=== PATIENT | female | born 1950 | race Caucasian/White ===

== ENCOUNTER 2022-02-15 11:17 | Emergency (ER) | payer MEDICARE ==
[2022-02-15 11:31] VITALS: RESP 18; TEMP 98.2
--- NOTE | 2022-02-15 11:50 | ED ---
General Adult HPI - General Chief complaint: Dizziness Stated complaint: Dizziness Time Seen by Provider: 02/15/22 11:34 Source: patient, EMS Mode of arrival: EMS Limitations: no limitations - History of Present Illness Initial comments: Dictation was produced using [employer] dictation software. please excuse any grammatical, word or spelling errors. Chief Complaint: 71-year-old female past medical history of DVTs, dyslipidemia, pulmonary embolus on anticoagulation therapy presents emergency department for 15 to 22 second episode of dizziness History of Present Illness: Lucila is a 71-year-old female she presents today for an episode of dizziness she was sitting down at rest when all of a sudden she felt acute onset dizziness. States that her last for 15-20 seconds. States that her symptoms remind her of the symptoms she had before she was diagnosed with thromboembolism. Patient's been on Xarelto for the last urinary half. States that her symptoms resolved on its own. He is asymptomatic at bedside. She decided come to the emergency department to be evaluated. The ROS documented in this emergency department record has been reviewed and confirmed by me. Those systems with pertinent positive or negative responses have been documented in the HPI. All other systems are other negative and/or noncontributory. PHYSICAL EXAM: General Impression: Alert and oriented x3, not in acute distress HEENT: Normocephalic atraumatic, extra-ocular movements intact, pupils equal and reactive to light bilaterally, mucous membranes moist. Cardiovascular: Heart regular rate and rhythm Chest: Able to complete full sentences, no retractions, no tachypnea Abdomen: abdomen soft, non-tender, non-distended, no organomegaly Musculoskeletal: Pulses present and equal in all extremities, no peripheral edema Motor: no focal deficits noted Neurological: CN II-XII grossly intact, no focal motor or sensory deficits noted Skin: Intact with no visualized rashes Psych: Normal affect and mood ED course: 71-year-old female with multiple comorbidities presents to the emergency department for episode of dizziness. Signs upon arrival are within acceptable limits. Patient denies any symptoms at the bedside are physical examination is benign. EKG is unremarkable. No concern for recurrence of DVT or PE given that patient's been on Xarelto and has been compliant. Laboratory evaluation obtained. CBC, metabolic panel is unremarkable. Patient observed in emergency department for approximately 1 hour 30 minutes per she is required at bedside at 12:45 PM on to be in stable medical condition. 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 She denies any symptoms while she was in the emergency department. Patient advised follow-up with primary care doctor. EKG interpretation: Ventricular rate 66, sinus rhythm,. Interval and 69, QS 84, QTC 417. No MD prolongation, no QTC prolongation, no ST or T-wave changes noted. Overall, this EKG is unremarkable - Related Data Allergies Allergy/AdvReac Type Severity Reaction Status Date / Time azithromycin Allergy Itching Verified 02/15/22 11:32 Penicillins Allergy Rash/Hives Verified 02/15/22 11:32 vancomycin Allergy Itching Verified 02/15/22 11:32 Review of Systems ROS Statement: Those systems with pertinent positive or pertinent negative responses have been documented in the HPI. ROS Other: All systems not noted in ROS Statement are negative. Past Medical History Past Medical History: Deep Vein Thrombosis (DVT), Hyperlipidemia, Hypertension, Pulmonary Embolus (PE) Additional Past Medical History / Comment(s): Tachycardia, chronic back pain, spinal stenosis. History of Any Multi-Drug Resistant Organisms: None Reported Past Surgical History: Appendectomy, Back Surgery, Heart Catheterization, Hysterectomy, Tonsillectomy Past Psychological History: Anxiety Smoking Status: Former smoker Past Alcohol Use History: Occasional Past Drug Use History: None Reported, Marijuana General Exam Limitations: no limitations Course Vital Signs 02/15/22 11:24 Temperature 98.2 F Pulse Rate 70 Respiratory 18 Rate Blood Pressure 139/67 O2 Sat by Pulse 96 Oximetry Medical Decision Making - Lab Data Result diagrams: 02/15/22 12:05 02/15/22 12:05 Lab Results 02/15/22 02/15/22 Range/Units 12:05 12:05 WBC 6.6 (3.8-10.6) k/uL RBC 5.12 (3.80-5.40) m/uL Hgb 17.0 H (11.4-16.0) gm/dL Hct 50.0 H (34.0-46.0) % MCV 97.6 (80.0-100.0) fL MCH 33.2 (25.0-35.0) pg MCHC 34.1 (31.0-37.0) g/dL RDW 13.9 (11.5-15.5) % Plt Count 179 (150-450) k/uL MPV 8.0 Neutrophils % 57 % Lymphocytes % 35 % Monocytes % 3 % Eosinophils % 2 % Basophils % 1 % Neutrophils # 3.8 (1.3-7.7) k/uL Lymphocytes # 2.3 (1.0-4.8) k/uL Monocytes # 0.2 (0-1.0) k/uL Eosinophils # 0.1 (0-0.7) k/uL Basophils # 0.1 (0-0.2) k/uL Sodium 138 (137-145) mmol/L Potassium 4.3 (3.5-5.1) mmol/L Chloride 107 (98-107) mmol/L Carbon Dioxide 25 (22-30) mmol/L Anion Gap 6 mmol/L BUN 15 (7-17) mg/dL Creatinine 0.88 (0.52-1.04) mg/dL Est GFR (CKD-EPI)AfAm 78 (>60 ml/min/1.73 sqM) Est GFR (CKD-EPI)NonAf 67 (>60 ml/min/1.73 sqM) Glucose 87 (74-99) mg/dL Calcium 8.8 (8.4-10.2) mg/dL Disposition Clinical Impression: Dizziness Disposition: HOME SELF-CARE Condition: Good Instructions (If sedation given, give patient instructions): Dizziness (ED) Is patient prescribed a controlled substance at d/c from ED?: No Referrals: Nonstaff,Physician [Primary Care Provider] - 1-2 days
[2022-02-15 12:37] LABS: Basophils # (A) 0.1 k/uL (0-0.2); Basophils % (A) 1 %; Calcium 8.8 mg/dL (8.4-10.2); Eosinophils # (A) 0.1 k/uL (0-0.7); Eosinophils % (A) 2 %; Lymphocytes # (A) 2.3 k/uL (1.0-4.8); Lymphocytes % (A) 35 %; MCH 33.2 pg (25.0-35.0); MCHC 34.1 g/dL (31.0-37.0); MCV 97.6 fL (80.0-100.0); Monocytes # (A) 0.2 k/uL (0-1.0); Monocytes % (A) 3 %; Neutrophils # (A) 3.8 k/uL (1.3-7.7); Neutrophils % (A) 57 %; Platelet Count 179 k/uL (150-450); RBC 5.12 m/uL (3.80-5.40); RDW 13.9 % (11.5-15.5); WBC 6.6 k/uL (3.8-10.6)
[2022-02-15 12:40] LABS: Potassium 4.3 mmol/L (3.5-5.1)
[2022-02-15 13:08] VITALS: BP 118/62; PULSE 65
== END 2022-02-15 13:12 | disposition home or self-care (01) ==
LOC: EC 11:17
DX: R42 Dizziness and giddiness (principal); E78.5 Hyperlipidemia, unspecified; I10 Essential (primary) hypertension; F41.9 Anxiety disorder, unspecified; F12.90 Cannabis use, unspecified, uncomplicated; Z88.0 Allergy status to penicillin; Z88.1 Allergy status to other antibiotic agents; Z86.718 Personal history of other venous thrombosis and embolism; Z86.711 Personal history of pulmonary embolism; Z90.49 Acquired absence of other specified parts of digestive tract; Z90.710 Acquired absence of both cervix and uterus; Z87.891 Personal history of nicotine dependence
CPT/HCPCS: 36415; 80048; 85025; 93005; 99284